=== PATIENT | male | born 1955 | race Caucasian/White ===

== ENCOUNTER 2016-09-15 23:26 | Inpatient (IN) | payer MEDICARE, MEDICAID ==
[~2016-09-15] VITALS: Ht 195.6 cm; Wt 164.0 kg
[~2016-09-15 23:26] MED LIST: ABILIFY2 MG PO; ASA CHILDREN'S81 MG PO; ATIVAN-DPS2 MG PO; BACTRIM DS DPS1 TAB PO; COLACE-DPS100 MG PO; COUMADIN10 MG PO; COUMADIN7.5 MG PO; CULTURELLE1 CAP PO; DELTASONE DPS10 MG PO; FOLVITE-DPS1 MG PO; HYDROCODONE 7.7.5 MG PO; IMODIUM DPS2 MG PO; LACTOBACILLUS PO; LOPRESSOR DPS12.5 MG PO; LOVENOX DPS150 MG/ML SQ; MAALOX DPS30 ML PO; MAG-OX400 MG PO; MICRO-K DPS10 MEQ PO; MYCOSTATIN PWD15 GM TP; NEURONTIN DPS300 MG PO; NIACIN ER1000 MG PO; NITROSTAT0.4 MG SL; NORMAL SALINE FL5 ML IV; NORVASC2.5 MG PO; NYSTATIN CREAM15 GM TP; NYSTOP60 GM TP; PLAQUENIL DPS200 MG PO; PROTONIX40 MG PO; SLO NIACIN DPS500 MG PO; TYLENOL DPS325 MG PO; VANCOCIN-DPS1 GM IV; VENLAFAXINE HC225 MG PO; VITAMIN D250000 UNIT PO; ZOCOR DPS20 MG PO; [UNRECOGNIZED DRUG - CODE] IV
--- NOTE | 2016-09-18 06:18 | ER ---
ADMIT: 09/16/2016 RM/LOC: 431 [facility] MR#: [id number] [address] [facility] [address] [place], [place] [address] [place] [address] Emergency Room Report SEX: M AGE: 60 : 1955 DATE: 09/15/2016 CHIEF COMPLAINT: Wheezing and decreased level of alertness. HISTORY OF PRESENT ILLNESS: The patient is a 60-year-old gentleman who is currently a patient at [facility], who is sent in for decreased level of alertness, difficult to arouse. They also note that he has had wheezing, seems like he is working hard to breathe. I got a somewhat limited report from [facility], and the patient is not able to provide me a good deal of history due to his decreased level of alertness. When asked specifically, the only pain he says he is having is in his leg and he will not tell me specifically which leg, but raises his left leg when I asked him which leg. This is different, however, when I had examined him, he seems to have more tenderness on his right leg. REVIEW OF SYSTEMS: Unable to obtain a reliable review of systems. PAST MEDICAL HISTORY: Extensive and includes coronary artery disease, diabetes, hypertension, peripheral vascular disease, neuropathy, hyperlipidemia, anemia of chronic disease, history of DVT, chronic liver disease, osteomyelitis, chronic kidney disease. PREVIOUS SURGERIES: Bilateral lower extremity amputations. MEDICATIONS: See nurse's note. He is on Coumadin. ALLERGIES: SEE NURSE'S NOTE. SOCIAL HISTORY: The patient used to be a smoker, but quit; also had history of alcohol abuse apparently per chart review, and also has quit. PHYSICAL EXAMINATION: See T-sheet. LUNGS: Focused exam shows the patient is slightly tachypneic and has some diffuse wheezes and is tachycardic. ABDOMEN: Morbidly obese. EXTREMITIES: Examination of his bilateral lower extremities reveals he has redness of the left lower extremity, which does appear to be cellulitis. I do not see any open wounds. The left lower extremity is warm when compared to the right. He does not have any significant tenderness on the left lower extremity, however. Examination of the right lower extremity does not appear to be cellulitic when compared to the left lower extremity, but he does have tenderness at the stump site on the right lower extremity. Again, there are no open wounds on the right lower extremity. LABORATORY DATA: CBC shows a white count of 10.2, hemoglobin of 13.4, and platelets of 88. Chemistry shows no abnormalities other than a CO2 of 26 and a creatinine of 1.8. His BNP was 462. Procalcitonin 0.14 with a lactic acid of 1.5. ABG on room air shows a pH of 7.38, pCO2 of 36.1, a PO2 of 68. His INR was 3.41. Urinalysis showed 2+ leuk esterase with 7 white blood cells. ADMIT: 09/16/2016 RM/LOC: 431 [facility] MR#: [id number] [facility] [address] [address] [place] [address] Emergency Room Report SEX: M AGE: 60 : 1955 No bacteria were noted. IMAGING: EKG showed sinus tachycardia, rate of 103 with a prolonged MN. EMERGENCY DEPARTMENT COURSE: Due to the patient's history of osteomyelitis, sepsis, and cellulitis, I did go ahead and did a sepsis routine on the patient. The laboratory results do not show any significant abnormalities related to sepsis. He had no focal findings on examination, so I did not do a head CT. He was given a breathing treatment shortly after arrival, which did improve his wheezing and he did seem to get more alert. He was also given an IV dose of Ancef after blood cultures were obtained to initiate treatment for what appears to be a cellulitis of the left lower extremity. At this point, due to the patient's altered level of conscious from his baseline which has gotten slightly better while in the ER, but is apparently still not back to his baseline, we will plan on keeping the patient. He has also had problems before with sepsis and osteomyelitis and believe he would benefit from IV antibiotics and further observation of his response to IV antibiotics for his cellulitis of the left lower extremity. I have spoken to the attending on this evening for Family Practice as he normally sees Dr. Garcia, and will be admitting the patient with the following. DIAGNOSES: 1. Cellulitis of left lower extremity. 2. Peripheral vascular disease. 3. Hypoxemia. 4. First-degree atrioventricular block. 5. Supratherapeutic INR. 6. Thrombocytopenia. Yash Sunshine MD/ ronal JOB #: [id number] CC: Shawn Sierra MD, Attending Physician Shawn Sierra MD, Family Physician
--- NOTE | 2016-09-20 12:58 | CO ---
ADMIT: 09/16/2016 RM/LOC: 431 [facility] MR#: [id number] [address] [address] [place] [address] Consultation SEX: M AGE: 60 : 1955 DATE OF CONSULTATION: 09/17/2016 ATTENDING PHYSICIAN: Shawn Sierra CONSULTING PHYSICIAN: Lamin Jones MD REASON FOR CONSULTATION: Abnormal HIDA scan result. HISTORY OF PRESENT ILLNESS: Moraima is a very pleasant, 60-year-old male, who resides at a intermediate facility and apparently became confused, short of breath, and tachycardic. Due to his symptoms, he was seen in the emergency room at our hospital where it was also noted that the patient had decreased level of consciousness. The bulk of my history was obtained from hospital record as the patient is a poor historian. It was noted in the emergency room that the patient had possible cellulitis and given with these findings was admitted to the hospital. Today, the patient reports very mild epigastric abdominal pain. He denies ever having nausea, but he states that he had 1 time emesis a day or two ago. He denies any diarrhea, constipation, or dark or bloody stools. He denies ever having any events prior to this hospitalization. He believes his symptoms have been going on for approximately 3 days. PAST MEDICAL HISTORY: Significant for peripheral vascular disease, type 2 diabetes with neuropathy, hypertension, anxiety, depression, GERD, renal failure, chronic osteomyelitis, hyperlipidemia, thrombocytopenia, coronary artery disease, and paroxysmal atrial fibrillation on Coumadin therapy. PAST SURGICAL HISTORY: Bilateral [id number] amputations, appendectomy, inguinal hernia repair, and femoral-popliteal bypass. Also, rotator cuff repair and cataracts. ALLERGIES: PAXIL, SULFA, AND HYDROCHLOROTHIAZIDE. MEDICATIONS: Well documented in the chart. Please note he is on Coumadin. FAMILY HISTORY: The patient reports brother had his gallbladder taken out. SOCIAL HISTORY: The patient denies any alcohol, tobacco, or illicit drug use. REVIEW OF SYSTEMS: CONSTITUTIONAL: The patient denies any fever, chills, or night sweats. HEAD: The patient has been having a low-grade headache for the last couple days. He denies any dizziness or lightheadedness. The rest of comprehensive 10-point review of systems was performed, and all other systems are negative. PHYSICAL EXAMINATION: GENERAL: The patient is in no acute distress. He is alert and oriented. HEENT: Head is normocephalic and atraumatic. EOMS are intact. Conjunctivae free of icterus, erythema, pallor. Pinnae free of deformities. Nose is ADMIT: 09/16/2016 RM/LOC: 431 [facility] MR#: [id number] [address] [address] [place] [id number] Consultation SEX: M AGE: 60 : 1955 midline. No tracheal deviation. NECK: Supple. SKIN: Morbid obesity noted. Negative for jaundice, clubbing, edema, pallor, or cyanosis. LUNGS: Normal respiratory effort. HEART: Distal pulses intact. Regular rate and rhythm. ABDOMEN: Soft, nondistended. Tenderness in right lower quadrant. No tenderness noted in right upper quadrant. Negative Pascual sign. NEURO: Grossly intact. LABORATORY DATA: INR 3.94. White blood cell count 7.3, hemoglobin 11.4, total bilirubin 0.3, alkaline phosphatase 43, AST 10, and ALT 11. DIAGNOSTIC IMAGING: Ultrasound revealed cholelithiasis and some mild gallbladder wall thickening. HIDA scan revealed EF of 2% ASSESSMENT: 1. Urinary tract infection. 2. Decreased level of consciousness. PLAN: When evaluating the patient, clinically the patient does not look like gallbladder patient. He is not having any abdominal pain in his right upper quadrant and nausea is questionable. Granted his HIDA scan is abnormal; however, there is no white count and his LFTs are within the normal range. Additionally, the patient is on Coumadin therapy where his INR is supratherapeutic and so he is not surgery candidate even at this time. Given these findings, we will follow the patient along in the hospital and continue IV antibiotics, but no surgery is warranted at this time. I discussed this plan with Dr. Jones and the patient, which he is in agreement of this plan, had all his questions answered and would like to proceed. Therefore, I will get him on a clear diet and go from there. Thank you for the consultation of this patient. CATRINA Stallings / Lamin Jones MD / ronal JOB #: [id number] CC: Shawn Sierra, Attending Physician Shawn Sierra, Family Physician
--- NOTE | 2016-09-20 12:58 | HP ---
ADMIT: 09/16/2016 RM/LOC: 431 [facility] MR#: [id number] [address] [address] [place] [address] History and Physical SEX: M AGE: 60 : 1955 DATE OF SERVICE: CHIEF COMPLAINT: Altered mental status. HISTORY OF PRESENT ILLNESS: The patient currently resides at a detention unit, apparently yesterday, became more confused, short of breath and tachycardic. I received a call from the nursing staff there and they were concerned about him and verbalized that he is going downhill, so they requested have him be sent to the ER for evaluation. When he was transferred to the ER, he was still altered; however, he is not meeting sepsis criteria at that time. The patient's altered mental status did improve slightly but according to the ER docs, he was still a poor historian. On what exactly has been going on with the workup and exam, they had expected that maybe he had a left leg cellulitis. The patient has a history of bilateral BKAs and also has a history of chronic osteomyelitis in the past. Upon my exam this morning, the patient was sleeping comfortably, is easily be awoken but also falls back to sleep. The patient says he feels a little bit better today. He denies any real chest pain, shortness of breath, cough, congestion, and were not sure why he is more confused last night. Denies any nausea, vomiting, diarrhea. Denies any pain with urination. No blood in the urine. Denies any upper respiratory infections like sinus congestion or sore throat. Does complain of some right lower leg pain in the knee. He is not aware of any other rashes or other concerns per the patient. PAST MEDICAL HISTORY: Significant for severe peripheral vascular disease, diabetes type 2 with neuropathy, heart disease, hypertension, anxiety, depression, GERD, history of renal failure, history of chronic osteomyelitis, hyperlipidemia and thrombocytopenia, coronary artery disease, and paroxysmal atrial fibrillation. SURGERY HISTORY: Positive for bilateral BKA, appendectomy, femoral-popliteal bypass, rotator cuff repair, cataracts, and an inguinal hernia repair as well. MEDICATIONS: See list. ALLERGIES: INCLUDE PAXIL, SULFA, AND HCTZ. SOCIAL HISTORY: The patient lives in a detention unit he is and has been disabled for many years. He is a former smoker and former alcoholic, but he has not drank or smoked for many years. FAMILY HISTORY: Significant for diabetes, coronary artery disease, and hypertension. REVIEW OF SYSTEMS: Negative. Otherwise, mentioned in the HPI. PHYSICAL EXAMINATION: VITAL SIGNS: Most recent set of vital signs included temperature of 101.5, heart rate of 95, respiratory rate 19, blood pressure 147/71, and he is satting 92% on room air. ADMIT: 09/16/2016 RM/LOC: 431 [facility] MR#: [id number] [address] [place] [address] [place] [address] History and Physical SEX: M AGE: 60 : 1955 GENERAL: He is in no acute distress. He is sleeping when I walked in the room, but easily awoken and he appears to be sweating a little bit. HEENT: Normocephalic and atraumatic. Moist mucous membranes. Extraocular muscles are intact. HEART: Regular rate and rhythm. No murmur. LUNGS: Clear to auscultation bilaterally. No wheezing. Normal effort. GI: Soft and nontender. Positive bowel sounds. EXTREMITIES: Both BKA show erythema over the knees and legs, however, left is worse than the right. With further extension of the right leg may be slightly more swollen than the left, however. LABORATORY DATA: ABG was fairly normal. INR showed that it is elevated 3.41. Urine blood cultures are pending. Lactic acid is normal at 1.5. CMP creatinine was elevated at 1.8. Cardiac enzymes are negative. ProBNP was slightly elevated at 462. White blood cell count was mildly elevated at 10.2, hemoglobin 13.4, and platelets of 88. UA showed 2+ leukocyte esterase. Procalcitonin was negative. ASSESSMENT AND PLAN: This is a 60-year-old male with a history of chronic osteomyelitis and history of bilateral altlv-nro-[id number] amputations. The patient presents last night for confusion increased work of breathing, tachycardia. The patient is slightly improved but will continue to monitor. The patient's symptoms are likely due to infection, could be from the cellulitis and also from the UTI as well. 1. Diabetes. 2. Hypertension. 3. Coronary artery disease. 4. Paroxysmal atrial fibrillation. At this time, we have the patient started on IV fluids and he is getting 1 g of Ancef every 8 hours. In addition, help treat his left foot cellulitis and the UTI. However, we will continue to monitor for any worsening of symptoms and make adjustments as needed. The patient was placed on a diabetic diet, is admitted inpatient treatment. We will get daily CBC and BMP to see and make sure we are not missing any other infection. Lorena Meléndez MD Resident / Shawn Sierra MD / ronal JOB #: [id number] CC: Shawn Sierra, Attending Physician Shawn Sierra, Family Physician
--- NOTE | 2016-09-23 15:00 | CO ---
ADMIT: 09/16/2016 RM/LOC: 431 [facility] MR#: [id number] [address] [address] [place] [facility] [place] [address] Consultation SEX: M AGE: 61 : 1955 DATE OF CONSULTATION: 09/17/2016 ATTENDING PHYSICIAN: Shawn Sierra CONSULTING PHYSICIAN: Lamin Jones MD Moraima was seen, interviewed, examined, and laboratory and radiographic studies evaluated. I have reviewed Fracisco Meza's note, and I am in agreement with his assessment and plan and interpretation of the studies. It does not seem that Moraima has necessarily any acute findings related to his gallbladder. He did have cholelithiasis with some chronic changes of the gallbladder with good filling of the gallbladder with HIDA scan and decreased ejection fraction suggesting more of a chronic problem. He has no tenderness on exam tonight in the abdomen. Based on that, I do not feel laparoscopic cholecystectomy is warranted at the present time and would just continue to follow for any symptomatic development. He is currently on IV antibiotic therapy for urinary tract infection, which seems more likely the source of his presenting symptoms. Lamin Jones MD/ ronal JOB #: [id number] CC: Shawn Sierra, Attending Physician Shawn Sierra, Family Physician
--- NOTE | 2016-10-15 20:08 | DS ---
ADMIT: 09/16/2016 RM/LOC: 431 [facility] MR#: [id number] [address] [address] [place] [address] General Discharge Summary SEX: M AGE: 60 : 1955 ADMISSION DATE: 09/16/2016 DISCHARGE DATE: 09/20/2016 CONSULT: Included General Surgery. FINAL DIAGNOSES: 1. Altered mental status secondary to urinary tract infection, caused by Jennifer. 2. Diabetes mellitus. 3. Hypertension. 4. History of coronary artery disease. 5. Paroxysmal atrial fibrillation. 6. Cholelithiasis on abdominal ultrasound with reduced EF on HIDA scan. 7. Supratherapeutic INR. PROCEDURES: None. HISTORY OF PRESENT ILLNESS: This is a 61-year-old male who comes to the hospital for altered mental status with suspect of possible either cellulitis or UTI as cause for his change in mental status. Lab data that needs to be followed include his INR. HOSPITAL COURSE: 1. Altered mental status. This improved with treatment of his urinary tract infection with antibiotics, moreover urine sample grew out Jennifer, was started treatment with antifungal as well. 2. Patient ended up not having cellulitis, although does have some history of osteomyelitis in the past. 3. Diabetes, hypertension, paroxysmal atrial fibrillation were all controlled per his regular medications. 4. Cholelithiasis on ultrasound was found in the ER. Further workup was done with the HIDA scan as well as consulting General Surgery for their opinion whether or not the patient needs to undergo surgery for these stone. Ultimately, the HIDA scan had good filling, but showed a decreased EF and it was determined that this is probably likely a chronic problem and that there is no acute abdominal pain or laboratory data. As the patient is improving his mental status, it was determined that he did not need a procedure at this time. ADMIT: 09/16/2016 RM/LOC: 431 [facility] MR#: [id number] [address] [facility] [address] [place], [place] [address] [place] [address] General Discharge Summary SEX: M AGE: 60 : 1955 DISCHARGE MEDICATIONS: New medications include: 1. Cefdinir 300 mg b.i.d. for 5 days. 2. Levaquin 500 mg daily for 5 days. 3. Diflucan 100 mg daily for 10 days. DISCHARGE INSTRUCTIONS: Diet is diabetic diet. Activity as tolerated. He was discharged to halfway facility. He has a followup appointment in 3-5 days, on September 24 with his PCP. CODE STATUS: Full. CONDITION AT DISCHARGE: Stable and improved. Lorena Meléndez MD Resident / Shawn Sierra MD / dylanl JOB #: [id number] CC: Shawn Sierra MD, Attending Physician Shawn Sierra MD, Family Physician
== END 2016-09-20 10:41 | DRG 728 ==
LOC: ER 23:26 → 4PCU 09-16 02:00
PROVIDERS: ADMIT Family Medicine
DX: B37.49 Other urogenital candidiasis (principal); D69.6 Thrombocytopenia, unspecified; E11.22 Type 2 diabetes mellitus with diabetic chronic kidney disease; E11.40 Type 2 diabetes mellitus with diabetic neuropathy, unspecified; G62.9 Polyneuropathy, unspecified; Z68.41 Body mass index [BMI] 40.0-44.9, adult; F32.9 Major depressive disorder, single episode, unspecified; I48.0 Paroxysmal atrial fibrillation; I12.9 Hypertensive chronic kidney disease with stage 1 through stage 4 chronic kidney disease, or unspecified chronic kidney disease; I73.9 Peripheral vascular disease, unspecified; E66.01 Morbid (severe) obesity due to excess calories; R79.1 Abnormal coagulation profile; I25.10 Atherosclerotic heart disease of native coronary artery without angina pectoris; E78.5 Hyperlipidemia, unspecified; K80.20 Calculus of gallbladder without cholecystitis without obstruction; R09.02 Hypoxemia; D63.8 Anemia in other chronic diseases classified elsewhere; K21.9 Gastro-esophageal reflux disease without esophagitis; I44.0 Atrioventricular block, first degree; Z82.49 Family history of ischemic heart disease and other diseases of the circulatory system; F41.9 Anxiety disorder, unspecified; K76.9 Liver disease, unspecified; N18.9 Chronic kidney disease, unspecified; Z89.512 Acquired absence of left leg below knee; Z86.718 Personal history of other venous thrombosis and embolism; Z89.511 Acquired absence of right leg below knee; Z87.891 Personal history of nicotine dependence

== ENCOUNTER 2016-09-20 10:48 | Inpatient (IN) | payer MEDICARE, MEDICAID | END 2016-09-26 20:49 | disposition short-term general hospital (02) | DRG 945 | LOC: SNU 10:48 | PROVIDERS: ADMIT Family Medicine | PROC: F06ZDZZ Swallowing Dysfunction Treatment (ICD-10-PCS; principal; 2016-09-24) | DX: R41.82 Altered mental status, unspecified (principal); Z68.41 Body mass index [BMI] 40.0-44.9, adult; Z89.512 Acquired absence of left leg below knee; Z89.511 Acquired absence of right leg below knee; E11.40 Type 2 diabetes mellitus with diabetic neuropathy, unspecified; E11.22 Type 2 diabetes mellitus with diabetic chronic kidney disease; I73.9 Peripheral vascular disease, unspecified; F41.9 Anxiety disorder, unspecified; K80.70 Calculus of gallbladder and bile duct without cholecystitis without obstruction; F32.9 Major depressive disorder, single episode, unspecified; E66.9 Obesity, unspecified; I12.9 Hypertensive chronic kidney disease with stage 1 through stage 4 chronic kidney disease, or unspecified chronic kidney disease; N18.9 Chronic kidney disease, unspecified; K21.9 Gastro-esophageal reflux disease without esophagitis; E78.5 Hyperlipidemia, unspecified; I25.10 Atherosclerotic heart disease of native coronary artery without angina pectoris; I48.0 Paroxysmal atrial fibrillation; Z87.891 Personal history of nicotine dependence; Z82.49 Family history of ischemic heart disease and other diseases of the circulatory system ==

== ENCOUNTER 2017-01-13 11:33 | Inpatient (IN) | payer MEDICARE, MEDICAID ==
[~2017-01-13] VITALS: Ht 195.6 cm; Wt 171.7 kg
--- NOTE | 2017-01-14 08:13 | ER ---
ADMIT: 01/13/2017 RM/LOC: 403 [facility] MR#: [id number] [address] [address] [place] [address] Emergency Room Report SEX: M AGE: 61 : 1955 DATE: 01/13/2017 ADDENDUM: See T-sheet for complete H and P. This 61-year-old gentleman with multiple medical problems, who is currently living at [facility] comes in from visit at his primary care physician's office with complaints of not feeling well and low oxygen saturations. He does have a history of severe peripheral vascular disease with bilateral below-knee amputations and morbid obesity. My initial evaluation showed that he did not screen positive for sepsis but his history was concerning for pneumonia with possible early sepsis as he has a temp of a 100.3, and is tachycardic but with a history of known atrial fibrillation. We did do our sepsis routine on the patient which showed normal procalcitonin and lactic but he has an elevated white blood cell count of 18.5 with an ANC of 16.3. Potassium is slightly low at 3.2 and he is therapeutic with an INR of 2.93. Chest x-ray showed what looks to be a left lower lobe opacity with possible right lower lobe opacity also. He was given antibiotics in the Emergency Department and will be admitted to Dr. Sierra's service, with Dr. Mccall writing orders. The patient is admitted in serious condition. DIAGNOSES: 1. Pneumonia. 2. Hypoxia. 3. Chronic kidney disease. 4. Hypokalemia. 5. Atrial fibrillation. Yash Sunshine MD/ ronal JOB #: [id number] CC: Shawn Sierra MD, Attending Physician Shawn Sierra MD, Family Physician
--- NOTE | 2017-01-15 12:17 | HP ---
ADMIT: 01/13/2017 RM/LOC: 403 [facility] MR#: [id number] [address] [address] [place] [address] History and Physical SEX: M AGE: 61 : 1955 DATE OF SERVICE: CHIEF COMPLAINT: Sudden onset over the last 24-48 hours of increased malaise, hypoxia, and fever. INTERVAL NOTE: Mr. Hale is a very nice, but unfortunate 61-year-old male, who was hospitalized from 07/26 to 07/31/2017 with cellulitis of the right lower limb with infection of his right above the knee amputation stump. He had a cutaneous abscess of the right thigh as well. He has multiple other diagnoses as outlined below. He has been at the long term unit ever since and on the extensive list of medications outlined below apparently had been doing reasonably well and had been seen by Dr. Sierra in followup on 08/05 after Don was done with his antibiotics. At that point, the cellulitis of the right AK stump had resolved. Consultation was requested with Dr. Kumar at that time, but I do not see any records there. At any rate, the skilled unit staff called my staff this morning with the above-noted complaint and they brought him down to the office where we were unable to get a blood pressure on him through multiple trials. He was hypoxic in the high 80s and pulse was very distant and weak. He had a temp of 101.7 in the office, and he looked terrible! Rescue squad was called, and he was brought to the emergency room where their evaluation showed apparent right lower lobe pneumonia with normal lactic acid. Given his history, he is readmitted for further evaluation and treatment. PAST MEDICAL HISTORY: Well documented on his old records. Specifically, he has severe peripheral vascular disease; questionable type 2 diabetes (controlled with diet); heart disease, status post stenting; systemic hypertension; chronic anxiety and depression; gastroesophageal reflux disease; history of renal failure; chronic osteomyelitis; hyperlipidemia; thrombocytopenia; paroxysmal atrial fibrillation; rheumatoid arthritis; and exogenous obesity. PAST SURGICAL HISTORY: From old records includes bilateral BKAs, appendectomy, femoral-popliteal bypass, rotator cuff repair, cataracts and inguinal hernia repair. ALLERGIES: INCLUDE PAXIL, SULFA DRUGS, AND HYDROCHLOROTHIAZIDE. CURRENT MEDICATIONS: Include: 1. Plaquenil 200 mg b.i.d. 2. Protonix 40 mg daily. 3. Slo-Niacin 500 mg at bedtime. 4. Sodium bicarb 650 mg t.i.d. 5. Zaroxolyn 2.5 mg Tuesday and at 0830. 6. Zocor 20 mg at bedtime. 7. Dulera 200/5 mcg two inhalations b.i.d. 8. Duragesic 25 mcg patch change every three days. 9. Voltaren 1% gel applied twice daily to the affected area. 10.Maalox 30 mL q.6 hours p.r.n. ADMIT: 01/13/2017 RM/LOC: 403 [facility] MR#: [id number] [address] [address] [place] [address] History and Physical SEX: M AGE: 61 : 1955 11.Milk of mag 10 mL daily. 12.MiraLAX 17 g daily p.r.n. 13.Oxy IR 10 mg daily p.r.n. 14.Tums 500 mg one or two every hour p.r.n. 15.Abilify 2 mg daily. 16.Culturelle b.i.d. 17.Colace 100 mg b.i.d. 18.Coumadin 2.5 mg Tuesday and Tuesday and 5 mg the other days. 19.Cymbalta 60 mg daily. 20.Deltasone 10 mg daily. 21.Florinef 0.1 mg daily. 22.Folvite 1 mg daily. 23.Lasix 80 mg b.i.d. 24.Lopressor 12.5 mg b.i.d. 25.Micro-K 10 mEq t.i.d. 26.Movantik 12.5 mg daily. 27.Neurontin 600 mg q.i.d. 28.Tylenol 650 mg q.4 hours p.r.n. 29.Valium 2.5 mg q.8 hours p.r.n. muscle spasm. 30.Dulcolax 10 mg suppository p.r.n. 31.Nitrostat p.r.n. SOCIAL HISTORY: Reveals he has been at the long term unit for a period of months. He is . He is a former smoker and former alcoholic. He has not had any tobacco or alcohol for many years. FAMILY HISTORY: Again from the old records is significant for diabetes, coronary artery disease, and hypertension. REVIEW OF SYSTEMS: A 10-point review of systems is basically not possible given his lethargy. PHYSICAL EXAMINATION: GENERAL: He appeared lethargic, was oriented to place and person, but a little vague on time. As noted, we were not really able to get his blood pressure, although I could palpate a weak pulse at about 50. SKIN: His skin was pale and diaphoretic. HEENT: Otherwise negative. CHEST: Clear anteriorly. CARDIAC: Exam shows irregular bradycardia. Heart sounds are distant and I did not detect an obvious murmur. ABDOMEN: Obese. Normal bowel sounds. No masses, tenderness, or organomegaly. EXTREMITIES: His bilateral lower extremity stumps were minimally erythematous without pain. IMPRESSION: 1. Recurrent sepsis with hypotension, hypoxia - suspect underlying pneumonia. 2. Recent hospitalization with right leg cellulitis and cutaneous abscess. ADMIT: 01/13/2017 RM/LOC: 403 [facility] MR#: [id number] [address] [address] [place] [address] History and Physical SEX: M AGE: 61 : 1955 3. Adrenocortical insufficiency. 4. History of paroxysmal atrial fibrillation. 5. Peripheral vascular disease. 6. Chronic anxiety and depression. 7. Morbid obesity. 8. Rheumatoid arthritis. 9. Chronic gastroesophageal reflux disease. 10.Hyperlipidemia. 11.Coronary vascular disease - status post stenting. 12.Chronic kidney disease, stage II. 13.Hypertensive nephropathy. 14.Chronic obstructive pulmonary disease. 15.Type 2 diabetes - diet controlled. 16.History of MRSA Staph aureus sepsis. 17.Status post bilateral lower extremity amputations for peripheral vascular disease. PLAN: He has been admitted to telemetry. We will continue the dual antibiotic therapy of Zosyn and vancomycin begun by the ER. We will seek some input from Dr. Jarrett, who has seen him on his previous hospitalizations. We will increase his bronchopulmonary toilet and steroids. Further treatment will depend on his response to our initial therapies. Mahamed Mccall MD/ ronal JOB #: [id number] CC: Shawn Sierra, Attending Physician Shawn Sierra, Family Physician
--- NOTE | 2017-01-23 19:20 | CO ---
ADMIT: 01/13/2017 RM/LOC: 403 [facility] MR#: [id number] [address] [address] [place] [address] Consultation SEX: M AGE: 61 : 1955 DATE OF CONSULTATION: 01/18/2017 ATTENDING PHYSICIAN: Shawn Sierra CONSULTING PHYSICIAN: Shawn Richardson MD REASON FOR CONSULTATION: Gallstones. HISTORY OF PRESENT ILLNESS: This patient is a multiple medical problems patient, 61 years of age, admitted basically because of sepsis and pneumonia. Somewhere along the line, he has complained of some abdominal pain which led to an ultrasound that showed gallstones. However, the ultrasound shows no evidence of cholecystitis, there was no evidence of thickening of the wall, there was no evidence of fluid around the gallbladder. He is not tender over the gallbladder. His INR, he is on chronic Coumadin. He has significant vascular disease with bilateral lower leg amputations. In looking at his liver tests, his bilirubins have all been normal. His alk phos have all been normal, as well as ASTs, ALTs like I said all normal. When I talked to him today sent in the room, he complains of pain. He said in multiple areas, more today in his left side out lateral, and he describes these pains as hurting when he moves is what causes the pain rather than much of anything else. Nothing with eating, bowels, or things of that nature. PAST MEDICAL/SURGICAL HISTORY: Significant for the above. 1. Coronary artery disease. 2. Hypertension. 3. Angio and stent. 4. Arthritis. 5. Morbid obesity. 6. Osteomyelitis. 7. Previous femoral-popliteal bypass. 8. Cataract. 9. Rotator cuff. 10.Inguinal hernia. 11.Appendectomy. 12.Chronic steroid use. MEDICATIONS: For current medications please see chart. ALLERGIES: SULFA, HYDROCHLOROTHIAZIDE, AND PAXIL. SOCIAL HISTORY: Former smoker. Former alcoholic, but for many years now he has not used either. FAMILY HISTORY: Noncontributory for this. REVIEW OF SYSTEMS: As the HPI, otherwise, negative. PHYSICAL EXAMINATION: GENERAL: He is alert, appears oriented, morbidly ADMIT: 01/13/2017 RM/LOC: 403 [facility] MR#: [id number] [address] [address] [place] [address] Consultation SEX: M AGE: 61 : 1955 obese, in no acute distress. EYES: His sclerae appear nonicteric. LUNGS: Distant, but appear clear anteriorly. HEART: Regular without obvious murmur. ABDOMEN: Obese. No real tenderness that I can get out that is worrisome. No Pascual's. No peritoneal signs. Positive bowel sounds. Bilateral stumps with some mild erythema, well-healed incision. ASSESSMENT AND PLAN: At this point, I do not see evidence of acute cholecystitis. HIDA scan has already been ordered. As long as there was filling of the gallbladder, we would not worry about it. He does have some gallstones seem to currently be asymptomatic. They have also ordered a CT scan of the abdomen and pelvis. We will follow up both. Hopefully, nothing surgically needs to be done. If he would be quite high risk with his multiple medical problems and comorbidities for any type of surgery. We will follow along. Shawn Richardson MD/ ronal JOB #: [id number] CC: Shawn Sierra, Attending Physician Shawn Sierra, Family Physician
--- NOTE | 2017-02-07 08:35 | CO ---
ADMIT: 01/13/2017 RM/LOC: 403 [facility] MR#: [id number] [address] [address] [place] [address] Consultation SEX: M AGE: 61 : 1955 DATE OF CONSULTATION: 01/14/2017 ATTENDING PHYSICIAN: Shawn Sierra CONSULTING PHYSICIAN: Carmelo Morrow DO REASON FOR CONSULTATION: Pneumonia and sepsis. HISTORY OF PRESENT ILLNESS: A 61-year-old male patient was recently hospitalized for a lower extremity stump cellulitis and abscess. He was recuperating at halfway unit when he was noted to be more fatigued with low O2 sats. He was transferred over to the Emergency Department where he was found to have pneumonia and early sepsis. He has been subsequently admitted and started on vancomycin and Zosyn after appropriate culture evaluation has been obtained. He does have a fairly extensive medical history including peripheral vascular disease, diabetes mellitus, coronary artery disease, femoral-popliteal bypass, prior PCI, hypertension, PAF, rheumatoid arthritis, obesity, CKD, and osteomyelitis. MEDICATIONS: At this time include, Abilify, Colace, Coumadin, Culturelle, Cymbalta, Deltasone, Florinef, Folvite, Lasix, Lopressor, Micro-K, Movantik, Neurontin, Plaquenil, Protonix, Slo-Niacin, sodium bicarb, Zaroxolyn, Zocor, Dulera, DuoNeb, Duragesic, Voltaren, and IV steroid Solu-Medrol along with vancomycin and Zosyn. For specifics of the dosing of his medications, please refer to his admission orders and MAR. SOCIAL HISTORY: Socially again, he is currently recuperating at halfway. He is , former smoker, and alcohol use. FAMILY HISTORY: Noncontributory. REVIEW OF SYSTEMS: The patient states that he is feeling better today. He has had some general chest congestion, malaise, and states that his oxygen levels were low at presentation, but currently no nausea, vomiting, diarrhea, constipation, or bleeding. PHYSICAL EXAMINATION: GENERAL: He is pleasant, obese, lying supine in bed. VITAL SIGNS: Temperature 98.1, pulse 73, respirations 20, blood pressure 122/69, and sat 92%. LUNGS: He has few crackles and distant lung sounds, bibasilar. He is obese. HEART: Regular. ABDOMEN: Soft. Below-knee amputation stumps are without any warmth, redness, or tenderness. ADMIT: 01/13/2017 RM/LOC: 403 [facility] MR#: [id number] [address] [address] [place] [address] Consultation SEX: M AGE: 61 : 1955 His BUN is 48, creatinine 3.2, which is down by comparison from 3.5, at admission his potassium is 3.3, INR 2.9, white count has dropped from 18.5 to 14.8 and he has 3+ leukocytes on urinalysis. His culture evaluations are pending. His chest x-ray showed bilateral pneumonia. IMPRESSION: 1. Pneumonia. 2. Sepsis with improved white blood cell count and general sense of well being, on current vancomycin and Zosyn. I agree with antibiotic choices and ongoing care as outlined by primary by Dr. Mccall. We will follow along and help and assist with his care. Carmelo Morrow DO/ ronal JOB #: [id number] CC: Shawn Sierra, Attending Physician Shawn Sierra, Family Physician
--- NOTE | 2017-02-27 13:25 | DS ---
ADMIT: 01/13/2017 RM/LOC: 403 [facility] MR#: [id number] [facility]#: [id number] [address] [address] [place] [address] General Discharge Summary SEX: M AGE: 61 : 1955 ADMISSION DATE: 01/13/2017 DISCHARGE DATE: 01/19/2017 ADMITTING DIAGNOSIS: As per history and physical. FINAL DIAGNOSES: 1. Sepsis. 2. Methicillin-resistant Staphylococcus aureus pneumonia. 3. Acute on chronic kidney failure. 4. Type 2 diabetes with chronic kidney disease. 5. Urogenital candidiasis. 6. Atherosclerotic coronary vascular disease. 7. Paroxysmal atrial fibrillation/sinoatrial node dysfunction. 8. Unspecified adrenocortical insufficiency. 9. Morbid obesity. 10.Chronic atrial fibrillation. 11.Peripheral vascular disease. 12.Status post bilateral lower extremity amputations. 13.Cholelithiasis without cholecystitis. 14.Hypokalemia. 15.Chronic kidney disease, stage 2. 16.Chronic anxiety disorder. 17.Major depressive disorder, recurrent. 18.Chronic gastroesophageal reflux disease. 19.Hyperlipidemia. 20.Long-standing rheumatoid arthritis, on long-term steroid therapy. 21.Nicotine dependence, in full sustained remission. 22.Past history of methicillin-resistant Staphylococcus aureus. COMPLICATIONS: Septicemia with severe sepsis. CLINICAL HISTORY: Mr. Hale is a very nice but unfortunate 61-year-old male, who is a resident at [facility]. He was transferred from the [facility] unit because of change in overall status with general malaise, hypoxia, and fever. He spiked a temp while being seen at our office up to 101.7. He was transferred to the emergency room where further evaluation showed a right lower lobe pneumonia with lactic acidosis on lab work. He is admitted at this time with recurrent sepsis and suspected pneumonia. For further details of his clinical history as well as his past medical history and pertinent findings on physical exam, please see dictated history and physical. Please also see dictated Infectious Disease consultation as well as dictated surgical consultations. LABORATORY AND X-RAY SUMMARY: For complete details of lab, please see cumulative laboratory summary included in the chart. Brief synopsis of lab, his initial CBC showed an elevated white count of 18,500 with left shift, hemoglobin was 13.9, and hematocrit 41.2. White count on his second hospital day was still elevated at 14,800. CBC at discharge showed a white count of 10,400, hemoglobin 11.7, and hematocrit 37.3. The patient has a chronic ADMIT: 01/13/2017 RM/LOC: 403 [facility] MR#: [id number] [facility] [address] [address] [place] [address] General Discharge Summary SEX: M AGE: 61 : 1955 thrombocytopenia, platelets ranged from 95,000 to 1,17,000 during this hospitalization. Protimes were monitored daily because of his ongoing Coumadin anticoagulation. On admission, his protime was 31.5, INR 2.93. At discharge, protime was 31.8, INR 2.96. Urinalysis on admission showed 2+ blood, negative nitrites, 3+ leukocyte esterase, he had 97 wbc's per high- power field, 183 rbc's per high-power field as well. On admission, his sodium was 134, potassium was 3.2, BUN was 39 with a serum creatinine of 3.5, blood sugar was 101. Following rehydration, his BUN on his second hospital day was 48 with a creatinine of 3.2. By his third hospital day, creatinine had dropped to 2.3. At discharge, his sodium was 141, potassium 3.4, BUN was 32 with a creatinine of 1.7 at discharge. His potassium was low throughout most of the hospitalization dropping down to as low as 2.9 on 01/16/2017. On admission, his cardiac enzymes were abnormal. His CK was 1073; however, his troponins were normal and CK-MBs were only mildly elevated. On admission, his procalcitonin was 1.64. On admission, lactic acid was 1.7. Blood cultures drawn on admission showed no growth. Urine cultures grew out primarily yeast. Sputum culture did grow out MRSA. Urine culture grew out Jennifer glabrata. His CT of his abdomen and pelvis done on admission showed cholelithiasis without any other significant intraabdominal pathology. He had a scan of his gallbladder, showed decreased gallbladder ejection fraction. His chest x-ray on admission showed bilateral lower lobe opacities consistent with pneumonia. Serial chest x-rays showed slow resolution of these lower lobe opacities. Ultimately, his sputum cultures grew out MRSA, and it was felt that these were an MRSA-related pneumonia. His EKG showed atrial fib on admission with rapid ventricular response. Serial EKGs showed him to go in and out sinus rhythm and atrial fibrillation, but no acute changes noted on any of his EKGs. HOSPITAL COURSE: The patient was admitted with what was felt to be pneumonia and sepsis secondary to his pneumonia. He was started on IV Zosyn and IV vancomycin per the sepsis protocol because of his adrenocortical insufficiency. He was also treated aggressively with IV steroids. He was admitted to telemetry. We aggressively treated for his pneumonia. We did get an infectious Disease consult. He responded well to his aggressive IV antibiotic therapy, and his pneumonia slowly improved. He was noted to have cholelithiasis, but no evidence of cholecystitis. Surgery was consulted, and they did not feel that he warranted proceeding with a cholecystectomy at this time. Ultimately, he was taken off the Zosyn and vancomycin and switched to ceftaroline 400 mg IV q.12 hours. His abdominal pain subsided, and he was feeling better. We transferred him back to the [facility] on 01/19/2017. His sepsis had resolved. His MRSA pneumonia was essentially resolved. DISCHARGE MEDICATIONS: At discharge, his medications were to include: 1. Abilify 2 mg daily. 2. Colace 100 mg b.i.d. 3. Coumadin 2.5 mg daily. 4. Culturelle 1 cap b.i.d. 5. Cymbalta 60 mg daily. ADMIT: 01/13/2017 RM/LOC: 403 [facility] MR#: [id number] 2620 [facility] [address] [place] [address] [place], [place] [address] General Discharge Summary SEX: M AGE: 61 : 1955 6. Prednisone 10 mg daily. 7. Diflucan 200 mg daily for 10 days. 8. Florinef 0.1 mg daily. 9. Folic acid 1 mg daily. 10.Potassium chloride 20 mEq q.i.d. 11.Lasix 80 mg b.i.d. 12.Lopressor 12.5 mg b.i.d. 13.Movantik 12.5 mg 1 daily. 14.Neurontin 600 mg q.i.d. 15.Plaquenil 200 mg b.i.d. 16.Protonix 40 mg daily. 17.Slo-Niacin 500 mg at bedtime. 18.Sodium bicarbonate 650 mg t.i.d. 19.Zaroxolyn 2.5 mg on Tuesday and . 20.Zocor 20 mg at bedtime. 21.Dulera 200/5, two puffs b.i.d. 22.DuoNeb via twin jet nebulizer q.i.d. 23.Duragesic 25 mcg patch, changed every 72 hours. 24.Voltaren gel applied to sore joints b.i.d. p.r.n. 25.Teflaro 400 mg IV q.12 hours for 4 more days. 26.Ativan 0.5 mg every 6 hours p.r.n. anxiety. 27.Maalox p.r.n. indigestion. 28.Milk of magnesia 10 mL p.r.n. constipation. 29.MiraLAX 17 g in 8 ounces of water once daily p.r.n. constipation. 30.OxyIR 10 mg q.6 hours p.r.n. pain. 31.Tums p.r.n. indigestion. 32.Tylenol p.r.n. minor discomfort. 33.Valium 2.5 mg p.r.n. dizziness. 34.Dulcolax 10 mg suppository p.r.n. constipation. 35.Nitrostat sublingual p.r.n. chest pain. He is to have lab work done at the [facility] unit in 2 days to include CBC, BMP, and protime. I will see him for followup at the [facility] unit in 5 to 7 days. CONDITION AT DISCHARGE: Stable and improved. PROGNOSIS: His long-term prognosis is poor in view of the complexity of his multiple comorbid medical conditions. Shawn Sierra MD/ dylanl JOB #: [id number] CC: Shawn Sierra MD, Attending Physician Shawn Sierra MD, Family Physician
== END 2017-01-19 14:19 | DRG 871 ==
LOC: ER 11:33 → 4PCU 13:29
PROVIDERS: ADMIT Family Medicine
DX: A41.9 Sepsis, unspecified organism (principal); J15.212 Pneumonia due to Methicillin resistant Staphylococcus aureus; N17.9 Acute kidney failure, unspecified; E11.22 Type 2 diabetes mellitus with diabetic chronic kidney disease; B37.49 Other urogenital candidiasis; I25.10 Atherosclerotic heart disease of native coronary artery without angina pectoris; I12.9 Hypertensive chronic kidney disease with stage 1 through stage 4 chronic kidney disease, or unspecified chronic kidney disease; I48.0 Paroxysmal atrial fibrillation; E27.40 Unspecified adrenocortical insufficiency; Z68.42 Body mass index [BMI] 45.0-49.9, adult; I48.2 Chronic atrial fibrillation; I73.9 Peripheral vascular disease, unspecified; E66.01 Morbid (severe) obesity due to excess calories; R09.02 Hypoxemia; K80.20 Calculus of gallbladder without cholecystitis without obstruction; E87.6 Hypokalemia; N18.2 Chronic kidney disease, stage 2 (mild); F41.9 Anxiety disorder, unspecified; F32.9 Major depressive disorder, single episode, unspecified; K21.9 Gastro-esophageal reflux disease without esophagitis; E78.5 Hyperlipidemia, unspecified; M06.9 Rheumatoid arthritis, unspecified; Z95.820 Peripheral vascular angioplasty status with implants and grafts; Z89.511 Acquired absence of right leg below knee; Z79.899 Other long term (current) drug therapy; Z89.512 Acquired absence of left leg below knee; Z95.5 Presence of coronary angioplasty implant and graft; Z87.891 Personal history of nicotine dependence; Z86.14 Personal history of Methicillin resistant Staphylococcus aureus infection

== ENCOUNTER 2017-01-22 17:45 | Emergency (ER) | payer MEDICARE, MEDICAID ==
--- NOTE | 2017-01-23 13:05 | ER ---
ADMIT: 01/22/2017 RM/LOC: ER [facility] MR#: [id number] [address] [address] [place] [address] Emergency Room Report SEX: M AGE: 61 : 1955 DATE: 01/22/2017 HISTORY OF PRESENT ILLNESS: The patient is a 61-year-old male with history of coronary artery disease, peripheral vascular disease, diabetes, cholelithiasis recently diagnosed, who came to the ER with chief complaint of abdominal pain, which is most periumbilical and some part to the epigastric area and some part to the left lower quadrant. The patient states he has been recently diagnosed with cholelithiasis, confirmed with the chart and at the same time has very similar symptoms, so the patient states the pain is mild and does not increase with palpation of the area. The patient denies any nausea vomiting, and states last bowel movement was today and was normal. The patient states the quality and quantity of the pain is very similar to the pain he had for cholelithiasis. PHYSICAL EXAMINATION: VITAL SIGNS: The patient has stable vitals. GENERAL: In no obvious pain or distress. He is afebrile. HEAD AND NECK: Normal. CHEST: Clear bilaterally. HEART: Normal heart sounds without any murmurs or gallops. ABDOMEN: Soft. I did not feel any tenderness or rebound, bowel sounds are normal. EXTREMITIES: Noncontributory. Bedside ultrasound with the ER physician was limited due to the body habitus of the patient. I could not well visualize the gallbladder. Pain was controlled with multiple dose of morphine IV, the patient was re-examined, and the symptoms have been resolved, the patient was discussed that since the pain, the quality and quantity is very similar to the previous pain due to cholelithiasis and the patient has no abdominal tenderness, he can be discharged to home, but as soon as he develops more pain or there are any changes or concerns, there would be more further followups and further treatments. The patient was advised to follow up with [facility] and also with primary care as needed, the patient acknowledged and agreed. He understood the plan and agreed with it, and the patient was discharged to home with diagnosis of abdominal pain resolved, cholelithiasis. Dell Ashley MD/ ronal JOB #: [id number] CC: Yash Sunshine MD, Attending Physician Shawn Sierra MD, Family Physician
== END 2017-01-22 20:50 | disposition home or self-care (01) ==
LOC: ER 17:45
DX: K80.20 Calculus of gallbladder without cholecystitis without obstruction (principal); I25.10 Atherosclerotic heart disease of native coronary artery without angina pectoris; E11.9 Type 2 diabetes mellitus without complications; I73.9 Peripheral vascular disease, unspecified; I12.9 Hypertensive chronic kidney disease with stage 1 through stage 4 chronic kidney disease, or unspecified chronic kidney disease; N18.9 Chronic kidney disease, unspecified; E78.5 Hyperlipidemia, unspecified; F32.9 Major depressive disorder, single episode, unspecified; F41.9 Anxiety disorder, unspecified; Z88.2 Allergy status to sulfonamides; Z88.8 Allergy status to other drugs, medicaments and biological substances; Z79.01 Long term (current) use of anticoagulants; Z79.899 Other long term (current) drug therapy

== ENCOUNTER 2017-01-24 09:01 | Emergency (ER) | payer MEDICARE, MEDICAID ==
--- NOTE | 2017-01-27 12:41 | ER ---
ADMIT: 01/24/2017 RM/LOC: ER [facility] MR#: [id number] [address] [address] [place] [address] Emergency Room Report SEX: M AGE: 61 : 1955 DATE: 01/24/2017 A 61-year-old, morbidly obese, white male coming over with abdominal pain. He was seen the other day, had ultrasound, which was negative. He does have gallstones but not cholelithiasis. Also his pain is on the left side rather than the right side. CT scan demonstrates a rectus sheath hematoma. He is on Coumadin. We will stop Coumadin. I spoke with Dr. Sierra. He is in agreement with this. He is also going to increase his OxyIR 5 mg to 2 p.o. every 4 p.r.n. pain. He is going to increase his Duragesic patch to 50 mcg every 3 days. We will follow up with [facility] as needed. CONDITION ON DISCHARGE: Fair. Fracisco Dunbar MD/ ronal JOB #: [id number] CC: Fracisco Dunbar MD, Attending Physician UNKNOWN, Family Physician
== END 2017-01-24 13:05 | disposition home or self-care (01) ==
LOC: ER 09:01
DX: K80.80 Other cholelithiasis without obstruction (principal); E66.01 Morbid (severe) obesity due to excess calories; I48.91 Unspecified atrial fibrillation; I25.10 Atherosclerotic heart disease of native coronary artery without angina pectoris; E11.9 Type 2 diabetes mellitus without complications; I10 Essential (primary) hypertension; Z90.49 Acquired absence of other specified parts of digestive tract; Z87.891 Personal history of nicotine dependence